=== PATIENT | male | born 1990 | race Caucasian/White ===

== ENCOUNTER 2023-02-13 15:08 | Outpatient (CLI) | payer BC ==
[2023-02-13 18:09] LABS: BASOPHILS # (AUTO) 0.1 10^3/uL (0.0-0.1); BASOPHILS % (AUTO) 0.9 %; EOSINOPHILS # (AUTO) 0.3 10^3/uL (0.0-0.7); EOSINOPHILS % (AUTO) 2.7 %; HGB - HEMOGLOBIN 15.8 g/dL (14.0-18.0); LYMPHOCYTES # (AUTO) 2.4 10^3/uL (1.5-3.5); LYMPHOCYTES % (AUTO) 24.3 %; MEAN CORPUSCULAR HEMOGLOBIN 30.5 pg (27.0-31.0); MEAN CORPUSCULAR HGB CONC 32.9 g/dL (32.0-36.0); MEAN CORPUSCULAR VOLUME 92.7 fL (80.0-94.0); MEAN PLATELET VOLUME 10.4 fL (7.4-11.4); MONOCYTES # (AUTO) 0.5 10^3/uL (0.0-1.0); MONOCYTES % (AUTO) 5.1 %; NEUTROPHILS # (AUTO) 6.7 10^3/uL (1.5-6.6); NEUTROPHILS % (AUTO) 66.7 %; PLT - PLATELET COUNT 342 10^3/uL (130-450); RED BLOOD COUNT 5.18 10^6/uL (4.70-6.10); RED CELL DISTRIBUTION WIDTH 12.3 % (12.0-15.0); WHITE BLOOD COUNT 10.1 x10^3/uL (4.8-10.8)
[2023-02-13 18:16] LABS: ALBUMIN 4.8 g/dL (3.2-5.5); ALBUMIN/GLOBULIN RATIO 1.7 (1.0-2.2); ALKALINE PHOSPHATASE 48 IU/L (42-121); ALT ALANINE AMINOTRANSFERASE 30 IU/L (10-60); AST ASPARTATE AMINOTRANSFERASE 26 IU/L (10-42); BILIRUBIN,TOTAL 0.6 mg/dL (0.2-1.0); BUN - BLOOD UREA NITROGEN 15 mg/dL (6-20); CALCIUM 9.5 mg/dL (8.5-10.3); CARBON DIOXIDE - CO2 27 mmol/L (21-32); CHLORIDE 103 mmol/L (101-111); CHOL/HDL RATIO 3.8 (<5.0); CHOLESTEROL 236 mg/dL; CREATININE 1.1 mg/dL (0.6-1.2); GFR - MDRD 77 (>89); GLUCOSE 96 mg/dL (70-100); HDL CHOLESTEROL 62 mg/dL; LDL CHOLESTEROL,CALCULATED 135 mg/dL; LDL/HDL RATIO 2.2 (<3.6); SODIUM 138 mmol/L (135-145); TOTAL PROTEIN 7.6 g/dL (6.7-8.2); TRIGLYCERIDES 196 mg/dL; VLDL CHOLESTEROL 39 mg/dL
[2023-02-13 18:34] LABS: THYROID STIMULATING HORMONE 2.16 uIU/mL (0.34-5.60)
== END 2023-02-13 15:09 | disposition home or self-care (01) ==
LOC: LAB.N 15:08
PROVIDERS: ATTEND Nurse Practitioner Family
DX: Z00.00 Encounter for general adult medical examination without abnormal findings (principal)
CPT/HCPCS: 36415; 80053; 80061; 83721; 84443; 85025

== ENCOUNTER 2023-03-26 07:32 | Outpatient (CLI) | payer BC ==
--- NOTE | 2023-03-26 08:10 | CARDIAC PROCEDURE NOTE ---
Stress Test Report Service Date: 03/26/23 Service Time: 08:00 Ordering Provider: Luciana Street ARNP, CFNP Indication for Test: Assess chest discomfort. Significant Medical History: Harmeet is referred for a treadmill stress echocardiogram to evaluate intermittent, primarily non-exertional, chest pressure, in the setting of a known elevated cardiovascular risk profile that in addition to classic risks elaborated below includes prior echocardiograms on two occasions demonstrating mild LVH and borderline dilation of the ascending aorta, as well as a concern regarding his EKG identified at a recent PCP clinic visit. 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 Takes amlodipine and lisinopril at night for HTN, including last evening. He sees Dr Santos periodically, is scheduled for a full repeat echocardiogram later this year. Cardiac Risk Factors: Positive for hypertension (treated approximately 1 year), hyperlipidemia (recent lipids TC 236, LDL-C 135, HDL-C 62, TG 196), family history of cardiovascular disease in father, with history of aortic dissection and early sudden at age 61); negative for diabetes and history of cigarette smoking. Type of Stress Test: ETT with Echocardiography Procedure: -Exercise Treadmill Test- After signing informed consent, the patient underwent rest echo imaging and then performed treadmill exercise using a Benoit protocol. The patient exercised for 9 minutes 30 seconds and achieved a peak heart rate of 176 (93 percent predicted maximum heart rate for age), and an estimated workload of 11 METS. The test was terminated due to fatigue/shortness of breath. Resting heart rate: 83 Peak heart rate: 176 Normal response to exercise. Resting BP: 134/82 Peak BP: 218/120 Normal at rest with normal/physiologic increase of systolic BP and abnormal increase in diastolic BP in response to exercise. Rhythm during exercise: Sinus rhythm throughout, without ectopy noted. Symptoms: No chest pressure or other cardiac symptoms identified. EKG at rest showed Normal sinus rhythm with less <[address] elevation in some leads (beyond V2 and V3), consistent with early repolarization pattern, normal variant. EKG at peak stress showed no ischemia by EKG criteria. In Recovery heart rate rapidly and normally returned toward its baseline level; blood pressure increased initially (max 260/71) then decreased to normal (115/58 at 7 minutes). Echo imaging, performed at rest and with stress, will be reported separately. IGraham MD, was present throughout this treadmill stress study and supervised it in its entirety. Summary: 1) Exercise tolerance moderately reduced for age as evidenced by BRENDA of 28%. 2) Normal resting EKG. 3) Adequate level of exercise was achieved on this treadmill stress test. 5) No ischemic changes by EKG criteria were seen at peak stress. 6) Echo image interpretation reveals normal left ventricular size and systolic function, with appropriate hyperdynamic augmentation of all segments with exercise, indicating no evidence of prior infarct or inducible ischemia. An area of mild basal septal hypertrophy was seen, but no significant valvular abnormality or elevation of estimated pulmonary artery systolic pressure was detected on screening study. Proximal ascending aortic diameter measured 38 mm. See separate report for more details. Conclusions and Recomendations: 1) This treadmill stress echocardiogram is notable for a hypertensive blood pressure response and moderate reduction of exercise capacity for age, but was without worrisome symptoms, abnormal EKG findings or echo evidence of ischemia. 2) We discussed that lisinopril may be more effective for daytime BP lowering if taken in the morning rather than the evening, and that he should discuss with Dr. Santos whether/when it would be appropriate to begin taking a statin for long-term ASCVD risk reduction.
== END 2023-03-26 07:33 | disposition home or self-care (01) ==
LOC: DI 07:32
PROVIDERS: ATTEND Nurse Practitioner Family
DX: R07.89 Other chest pain (principal); R94.31 Abnormal electrocardiogram [ECG] [EKG]; I10 Essential (primary) hypertension; Q24.8 Other specified congenital malformations of heart; E78.5 Hyperlipidemia, unspecified; Z82.49 Family history of ischemic heart disease and other diseases of the circulatory system
CPT/HCPCS: 93350